=== PATIENT | female | born 1970 | race Caucasian/White ===

== ENCOUNTER → 2016-02-25 | Outpatient (REF) | LOC: WSOH 08:23 | DX: Z02.89 Encounter for other administrative examinations (principal) ==

== ENCOUNTER → 2016-03-10 | Outpatient (REF) | LOC: WSOH 13:30 | DX: Z02.89 Encounter for other administrative examinations (principal) ==

== ENCOUNTER → 2016-04-10 | Outpatient (REF) | LOC: WSOH 11:25 | DX: Z23 Encounter for immunization (principal) ==

== ENCOUNTER → 2016-09-07 | Outpatient (REF) | LOC: WSOH 11:22 | DX: Z23 Encounter for immunization (principal) ==

== ENCOUNTER → 2016-10-10 | Outpatient (REF) | LOC: WSOH 13:03 | DX: Z01.84 Encounter for antibody response examination (principal) ==

== ENCOUNTER 2016-11-29 20:26 | Emergency (ER) | payer BC ==
[~2016-11-29] VITALS: Ht 162.6 cm; Wt 70.5 kg
[2016-11-29 20:29] VITALS: TEMP 97.7
[2016-11-29] MEDS ORDERED: ZOVIRAX800 MG PO (21:17)
[2016-11-29 21:19] VITALS: BP 119/62; PULSE 69
== END 2016-11-29 21:25 | disposition home or self-care (01) ==
LOC: COL.ER 20:26
DX: B02.30 Zoster ocular disease, unspecified (principal)

== ENCOUNTER → 2017-05-18 | Outpatient (CLI) | payer BC ==
[~2017-05-18] MED LIST: ZOVIRAX800 MG PO
== END ==
LOC: MC.RAD 11:01
DX: N60.02 Solitary cyst of left breast (principal); N63.20 Unspecified lump in the left breast, unspecified quadrant

== ENCOUNTER → 2017-11-01 | Outpatient (CLI) | payer BC | LOC: MC.RAD 07:30 | DX: N60.12 Diffuse cystic mastopathy of left breast (principal) ==

== ENCOUNTER → 2018-05-20 | Outpatient (CLI) | payer BC | LOC: MC.RAD 07:13 | DX: Z12.31 Encounter for screening mammogram for malignant neoplasm of breast (principal) ==

== ENCOUNTER → 2018-06-17 | Outpatient (CLI) | payer BC | LOC: COL.RAD 12:10 | DX: M25.512 Pain in left shoulder (principal) ==

== ENCOUNTER 2018-08-16 08:15 | Outpatient (RCR) | payer BC | END 2018-09-29 | disposition still patient (30) | LOC: MKS.ESL.PT | DX: M25.512 Pain in left shoulder (principal) ==

== ENCOUNTER → 2019-08-07 | Outpatient (CLI) | payer BC | LOC: MC.RAD 16:48 | DX: Z12.31 Encounter for screening mammogram for malignant neoplasm of breast (principal) ==

== ENCOUNTER → 2020-08-09 | Outpatient (CLI) | payer BC | LOC: MC.RAD 07:30 | DX: Z12.31 Encounter for screening mammogram for malignant neoplasm of breast (principal); N63.22 Unspecified lump in the left breast, upper inner quadrant ==

== ENCOUNTER → 2020-08-13 | Outpatient (CLI) | payer BC | LOC: MC.RAD 06:56 | DX: N60.02 Solitary cyst of left breast (principal) ==

== ENCOUNTER → 2021-09-13 | Outpatient (CLI) | payer BC | LOC: MC.RAD 09:08 | DX: Z12.31 Encounter for screening mammogram for malignant neoplasm of breast (principal) ==